=== PATIENT | male | born 1965 | race Caucasian/White ===

== ENCOUNTER 2017-06-14 16:06 | Emergency (ER) | payer OTHER ==
[~2017-06-14] VITALS: Ht 180.3 cm; Wt 98.0 kg
[~2017-06-14 16:06] MED LIST: FLUT50SP EACH NARE; MEDR4PAK PO; [UNRECOGNIZED DRUG - OTHER] TD
[2017-06-14 16:07] VITALS: BP 168/92; PULSE 77; RESP 16; TEMP 98.8; O2SAT 97
--- NOTE | 2017-06-14 18:05 | PD ---
HPI Chief Complaint: Pain: Acute or Chronic Time Seen by Provider: 17:59 Travel History International Travel<30 days: No Contact w/Intl Traveler<30days: No Traveled to known affect area: No History of Present Illness HPI 51-year-old male presents to the emergency Department with complaint of right wrist pain 2 months. Denies injury. Location to the lateral aspect of the right wrist. Pain is worse with medial flexion of the wrist. Denies swelling of the wrist. Denies fever, vomiting. Denies paresthesias, loss of sensation, decreased range of motion, decreased strength to the affected extremity. Has taken Tylenol for symptom management. Has used a wrist splint for symptom management. Pain is aggravated with movement. Pain is decreased while at rest. Pain is occasional. Described as a "shock" sensation when it occurs. Dr. Branch is his primary care provider and told him he most likely has tendinitis. He has a follow-up appointment with his primary care provider on June 30. Has no other medical complaints. No known allergies. No other modifying factors or associated signs and symptoms. Allergies-Medications (Allergen,Severity, Reaction): Coded Allergies: No Known Allergies (Unverified , 06/14/17) Reported Meds & Prescriptions Reported Meds & Active Scripts Active [wrist splint] Unit TD Review of Systems Except as stated in HPI: all other systems reviewed are Neg Physical Exam Narrative GENERAL: Well-nourished, well-developed male patient, in no acute distress; afebrile, nontoxic-appearing SKIN: Warm and dry. HEAD: Atraumatic. Normocephalic. EYES: Pupils equal and round. No scleral icterus. No injection or drainage. ENT: Mucosa pink and moist. Airway patent. NECK: Trachea midline. CARDIOVASCULAR: Regular rate. RESPIRATORY: No accessory muscle use. GASTROINTESTINAL: Flat. MUSCULOSKELETAL: Right wrist with tenderness on palpation to the medial aspect ; without erythema, edema, ecchymosis; no obvious deformity; pain exacerbated with medial flexion of the wrist; full range of motion; sensory intact; full tacking stitch remover strength; 2+ radial pulse. Right upper extremity is supple and non-tense with 2+ radial pulses and sensory intact without erythema or edema. No obvious deformities. No clubbing. No cyanosis. NEUROLOGICAL: Awake and alert. Oriented 3. No obvious cranial nerve deficits. Motor grossly within normal limits. Normal speech. PSYCHIATRIC: Appropriate mood and affect; insight and judgment normal. Data Data Last Documented VS Vital Signs Date Time Temp Pulse Resp B/P (MAP) Pulse Ox O2 Delivery O2 Flow Rate FiO2 06/14/17 16:07 98.8 77 16 168/92 (117) 97 Room Air [facility] Medical Screen Exam Complete: Yes Emergency Medical Condition: No Differential Diagnosis Tendinitis, tenosynovitis, carpal tunnel syndrome, wrist pain Narrative Course 51-year-old male with right wrist pain. Denies injury. I do not suspect fracture or dislocation and feel that imaging is not necessary at this time. He has a follow-up with primary care provider on June 30. Vital signs are stable and the patient is stable for outpatient follow-up and treatment. The patient has no urgent or emergent medical complaints. There is no emergent or urgent medical need at this time. I instructed the patient to follow up with their primary care provider. A medical screening exam was performed: At the time of evaluation the presenting medical condition was determined not to be of an emergent nature. The patient was given the option of receiving additional care, but declined. Patient was given options for additional community resources from which to obtain care. The Patient Has Been advised to seek medical attention for their presenting complaint. The patient has been advised to return to the ER at any time if an emergent condition develops. Primary Impression: Encounter for medical screening examination Condition: Stable Leann Minor Jun 14, 2017 18:05
== END 2017-06-14 18:08 | disposition left against medical advice (07) ==
LOC: NEPK 16:06
DX: M25.531 Pain in right wrist (principal)
CPT/HCPCS: 99281